=== PATIENT | female | born 1970 | race Hispanic/Latino ===

== ENCOUNTER 2018-08-23 04:59 | Observation (INO) | payer OTHER ==
[2018-08-23] VITALS (21 sets, daily range): BP systolic 108–137; BP diastolic 59–78
[~2018-08-23] VITALS: Ht 162.6 cm; Wt 78.7 kg
[2018-08-23] MEDS ORDERED: ONDANSETRON HCL 4 MG/2 ML VIAL ONE ×2 (05:24→10:48)
[2018-08-23] MEDS ORDERED: SODIUM CHLORIDE 0.9% 1000ML 1,000 ML IV ONE ×2 (05:24→08:31)
[2018-08-23] MEDS ORDERED: KETOROLAC TROMETHAMINE 30MG/ML ONE (05:25)
[2018-08-23 05:30] LABS: APPEARANCE,URINE Clear (CLEAR); BILIRUBIN,URINE Negative (NEGATIVE); COLOR,URINE Yellow (YELLOW); GLUCOSE, URINE (UA) Negative (NEGATIVE); KETONES,URINE Negative (NEGATIVE); LEUKOCYTE ESTERASE ,URINE Moderate (NEGATIVE); NITRATE,URINE Negative (NEGATIVE); OCCULT BLOOD,URINE Large (NEGATIVE); PROTEIN,URINE Negative (NEGATIVE); UROBILINOGEN,URINE 0.2 mg/dL (0.2-1.0)
[2018-08-23 05:30] LABS: BASOPHILS % (AUTO) 0.7 % (0.0-5.0); EOSINOPHILS % (AUTO) 2.2 % (0.0-8.0); HEMATOCRIT 40.3 % (36-48); LYMPHOCYTES % (AUTO) 29.3 % (21.0-51.0); MEAN CORPUSCULAR HEMOGLOBIN 30.7 pg (27.0-33.0); MEAN CORPUSCULAR HGB CONC 33.4 g/dL (32.0-36.0); MEAN CORPUSCULAR VOLUME 91.9 fL (79-99); MONOCYTES % (AUTO) 9.8 % (3.0-13.0); PLATELET COUNT (AUTO) 162 K/uL (130-400); RED BLOOD CELL COUNT(AUTO) 4.39 MIL/uL (4.00-5.50); RED CELL DISTRIBUTION WIDTH 12.5 % (11.0-15.5); WHITE BLOOD COUNT (AUTO) 6.5 K/uL (4.8-10.8)
[2018-08-23 05:39] LABS: AMPHET/METH SCREEN,URINE NEGATIVE (NEGATIVE); BARBITURATE SCREEN, URINE NEGATIVE (NEGATIVE); BENZODIAZEPINES SCREEN,URINE NEGATIVE (NEGATIVE); CANNABINOID SCREEN,URINE NEGATIVE (NEGATIVE); COCAINE SCREEN,URINE NEGATIVE (NEGATIVE); OPIATE SCREEN,URINE NEGATIVE (NEGATIVE); PHENCYCLIDINE SCREEN,URINE NEGATIVE (NEGATIVE)
[2018-08-23 05:39] LABS: CREATININE 0.8 mg/dL (0.5-1.5)
[2018-08-23 05:43] LABS: ALBUMIN 3.6 g/dL (3.5-5.0); BILIRUBIN,DIRECT 0.1 mg/dL (0.0-0.3); BILIRUBIN,TOTAL 0.6 mg/dL (0.2-1.0); TOTAL PROTEIN, SERUM 7.5 g/dL (6.0-8.3)
[2018-08-23 05:47] LABS: BACTERIA,URINE Few /HPF (None Seen); SQUAMOUS EPITHELIAL CELL,UR 0-2 /HPF (0-2); WBC,URINE 0-1 /HPF (0-1)
[2018-08-23] MEDS ORDERED: MORPHINE SULFATE 2 MG/ML 1ML SYG IV PRN ×3 (07:30→11:00)
[2018-08-23 07:49] LABS: INR 0.93 (0.85-1.15); PARTIAL THROMBOPLASTIN TIME 27.4 SEC (26.3-35.5); PROTHROMBIN TIME 9.8 SEC (9.6-11.6)
[2018-08-23] MEDS ORDERED: FAMOTIDINE/PF 20 MG/2 ML VIAL IV ONE (08:32)
[2018-08-23] MEDS: FAMOTIDINE/PF 20 MG/2 ML VIAL IV SCH ×2 (09:00→21:38)
[2018-08-23] MEDS ORDERED: MORPHINE SULFATE 2 MG/ML 1ML SYG ONE (10:37)
[2018-08-23] MEDS ORDERED: PHARMACY COMMUNICATION MISC SCH (10:45)
[2018-08-23] MEDS ORDERED: ONDANSETRON HCL MDV 20ML 2 MG/ML VIAL IVP PRN (11:00)
[2018-08-23] MEDS: CEFTRIAXONE SODIUM 1 GM IVP SCH ×2 (11:15→15:35)
[2018-08-23] MEDS ORDERED: HYDROMORPHONE 1 MG/1 ML AMP ONE (13:26)
[2018-08-23] MEDS ORDERED: LACTATED RINGERS 1000ML 1,000 ML IV ONE (13:32)
[2018-08-23] MEDS ORDERED: MEPERIDINE-PF 25 MG/ML SYG ONE (13:35)
[2018-08-23] MEDS ORDERED: HYDROMORPHONE 1 MG/1 ML AMP IVP ONE (14:30)
[2018-08-23] MEDS ORDERED: IOHEXOL-350 50ML VIAL IV ONE (14:42)
[2018-08-23] MEDS ORDERED: PROPOFOL 10 MG/ML 20ML VIAL IV ONE (15:15)
[2018-08-23] MEDS ORDERED: MIDAZOLAM HCL 1 MG/ML 2ML VIAL ONE (15:15)
[2018-08-23] MEDS ORDERED: FENTANYL CITRATE PF 50 MCG/1 ML 2ML VIAL ONE (15:16)
[2018-08-23] MEDS ORDERED: OPIUM/BELLADONNA ALKALOIDS 1 EACH SUPP.RECT RC ONE (16:50)
[2018-08-23] MEDS: SODIUM CHLORIDE 0.9% 1000ML 1,000 ML IV SCH ×2 (17:22→21:37)
[2018-08-23 19:07] LABS: CREATINE KINASE, TOTAL 41 U/L (21-232); MYOGLOBIN 22 ng/mL (10-92); TROPONIN I < 0.04 ng/mL (0.00-0.06)
[2018-08-24] VITALS: BP 107/66
[2018-08-24 04:00] VITALS: BP 105/69
[2018-08-24 05:22] LABS: HEMATOCRIT 33.7 % (36-48); MEAN CORPUSCULAR HEMOGLOBIN 31.7 pg (27.0-33.0); MEAN CORPUSCULAR HGB CONC 34.4 g/dL (32.0-36.0); PLATELET COUNT (AUTO) 159 K/uL (130-400); RED BLOOD CELL COUNT(AUTO) 3.66 MIL/uL (4.00-5.50); RED CELL DISTRIBUTION WIDTH 12.8 % (11.0-15.5); WHITE BLOOD COUNT (AUTO) 6.9 K/uL (4.8-10.8)
[2018-08-24 05:35] LABS: CREATININE 0.9 mg/dL (0.5-1.5); POTASSIUM 3.3 mmol/L (3.5-5.1)
[2018-08-24] MEDS ORDERED: KETOROLAC TROMETHAMINE 15MG/ML IV SCH (08:15)
[2018-08-24 08:28] VITALS: BP 105/59
[2018-08-24] MEDS: FAMOTIDINE/PF 20 MG/2 ML VIAL IV SCH (08:31)
[2018-08-24] MEDS ORDERED: PHENAZOPYRIDINE HCL 200 MG TABLET PO SCH (09:00)
[2018-08-24] MEDS: CEFTRIAXONE SODIUM 1 GM IVP SCH (11:15)
[2018-08-24 12:09] VITALS: BP 101/66
== END 2018-08-24 13:30 | disposition home or self-care (01) ==
LOC: EDH 04:59 → EDHIP 07:22 → 3AH 09:25
PROVIDERS: ADMIT Hospitalist; ATTEND Hospitalist
DX: N13.2 Hydronephrosis with renal and ureteral calculous obstruction (principal); Z88.5 Allergy status to narcotic agent; Z87.442 Personal history of urinary calculi; Z79.899 Other long term (current) drug therapy; Z90.710 Acquired absence of both cervix and uterus; Z79.01 Long term (current) use of anticoagulants
CPT/HCPCS: 36415 ×2; 52356; 71045; 74176; 74420; 80048 ×2; 80076; 80305; 81001; 82550; 83690; 83874; 84484; 84702; 85025; 85027; 85610; 85730; 87088; 96374; 96375 ×2; 96376; 99285; A4218; A4344; A4358; C1758 ×2; C1769; C2617; G0378 ×30; J0696; J1885 ×2; J2175; J2250; J2405 ×2; J2704; J3010; J3490 ×3; J7030 ×3; J7120; J1170; Q9967

== ENCOUNTER → 2019-03-05 | Outpatient (CLI) | payer OTHER | END | disposition home or self-care (01) | LOC: RAH 13:05 | PROVIDERS: ATTEND Urology Pediatric Urology | DX: N20.0 Calculus of kidney (principal); K42.9 Umbilical hernia without obstruction or gangrene | CPT/HCPCS: 74176 ==

== ENCOUNTER → 2019-04-02 | Outpatient (CLI) | payer OTHER | END | disposition home or self-care (01) | LOC: RAH 14:17 | PROVIDERS: ATTEND Urology Pediatric Urology | DX: N20.0 Calculus of kidney (principal) | CPT/HCPCS: 78700; A9562 ==

== ENCOUNTER 2019-10-25 13:15 | Emergency (ER) | payer OTHER ==
[2019-10-25 13:52] LABS: BASOPHILS % (AUTO) 0.2 % (0.0-5.0); EOSINOPHILS % (AUTO) 0.9 % (0.0-8.0); HEMATOCRIT 39.2 % (36-48); LYMPHOCYTES % (AUTO) 11.7 % (21.0-51.0); MEAN CORPUSCULAR HEMOGLOBIN 29.8 pg (27.0-33.0); MEAN CORPUSCULAR HGB CONC 32.7 g/dL (32.0-36.0); MEAN CORPUSCULAR VOLUME 91.2 fL (79-99); MONOCYTES % (AUTO) 7.6 % (3.0-13.0); NEUTROPHILS % (AUTO) 79.3 % (40.0-77.0); PLATELET COUNT (AUTO) 187 K/uL (130-400); RED CELL DISTRIBUTION WIDTH 12.6 % (11.0-15.5); WHITE BLOOD COUNT (AUTO) 9.1 K/uL (4.8-10.8)
[2019-10-25 14:02] LABS: CREATININE 1.1 mg/dL (0.5-1.5); POTASSIUM 3.3 mmol/L (3.5-5.1)
[2019-10-25 14:06] LABS: APPEARANCE,URINE Clear (CLEAR); BILIRUBIN,URINE Negative (NEGATIVE); COLOR,URINE Yellow (YELLOW); GLUCOSE, URINE (UA) Negative (NEGATIVE); KETONES,URINE Negative (NEGATIVE); LEUKOCYTE ESTERASE ,URINE Moderate (NEGATIVE); NITRATE,URINE Negative (NEGATIVE); OCCULT BLOOD,URINE Large (NEGATIVE); PH,URINE 6.5 (5.0-8.0); PROTEIN,URINE Trace mg/dL (NEGATIVE); UROBILINOGEN,URINE 0.2 mg/dL (0.2-1.0)
[2019-10-25 14:07] LABS: ALBUMIN 3.6 g/dL (3.5-5.0); BILIRUBIN,TOTAL 0.4 mg/dL (0.2-1.0); TOTAL PROTEIN, SERUM 7.4 g/dL (6.0-8.3)
[2019-10-25 14:27] LABS: HCG,QUAL RESULT NEGATIVE (NEGATIVE)
[2019-10-25 14:31] LABS: BACTERIA,URINE Rare /HPF (None Seen); RBC,URINE 26-50 /HPF (0-1); SQUAMOUS EPITHELIAL CELL,UR Few /HPF (0-2)
[2019-10-25] MEDS ORDERED: KETOROLAC TROMETHAMINE 60 MG/2 ML VIAL ONE (14:40)
[2019-10-25] MEDS ORDERED: POTASSIUM CHLORIDE 20 MEQ ERTAB PO ONE (17:11)
[2019-10-25] MEDS ORDERED: SODIUM CHLORIDE 0.9% 1000ML 1,000 ML IV ONE (17:12)
== END 2019-10-25 19:25 | disposition home or self-care (01) ==
LOC: EDH 13:15
DX: N20.2 Calculus of kidney with calculus of ureter (principal); N83.202 Unspecified ovarian cyst, left side; Z88.6 Allergy status to analgesic agent; Z72.0 Tobacco use
CPT/HCPCS: 36415; 74176; 76770; 80053; 81001; 81025; 85025; 87088; 96372; 99285; J1885; J7030

== ENCOUNTER 2020-01-27 05:05 | Emergency (ER) | payer OTHER ==
[2020-01-27] MEDS ORDERED: KETOROLAC TROMETHAMINE 30MG/ML ONE (05:30)
[2020-01-27] MEDS ORDERED: METOCLOPRAMIDE 10 MG/2 ML VIAL ONE (05:30)
[2020-01-27] MEDS ORDERED: ONDANSETRON HCL 4 MG/2 ML VIAL ONE (05:30)
[2020-01-27] MEDS ORDERED: SODIUM CHLORIDE 0.9% 1000ML 2,000 ML IV ONE (05:31)
[2020-01-27 05:33] LABS: APPEARANCE,URINE Cloudy (CLEAR); BILIRUBIN,URINE Negative (NEGATIVE); COLOR,URINE Yellow (YELLOW); GLUCOSE, URINE (UA) Negative (NEGATIVE); KETONES,URINE Negative (NEGATIVE); LEUKOCYTE ESTERASE ,URINE Trace (NEGATIVE); NITRATE,URINE Negative (NEGATIVE); OCCULT BLOOD,URINE Nonhemolyzed Trace (NEGATIVE); PH,URINE 5.5 (5.0-8.0); PROTEIN,URINE Negative (NEGATIVE); UROBILINOGEN,URINE 0.2 mg/dL (0.2-1.0)
[2020-01-27 05:34] LABS: BASOPHILS % (AUTO) 0.5 % (0.0-5.0); EOSINOPHILS % (AUTO) 2.6 % (0.0-8.0); HEMATOCRIT 36.8 % (36-48); LYMPHOCYTES % (AUTO) 13.8 % (21.0-51.0); MEAN CORPUSCULAR HEMOGLOBIN 29.1 pg (27.0-33.0); MEAN CORPUSCULAR HGB CONC 32.3 g/dL (32.0-36.0); MONOCYTES % (AUTO) 6.8 % (3.0-13.0); PLATELET COUNT (AUTO) 220 K/uL (130-400); RED BLOOD CELL COUNT(AUTO) 4.09 MIL/uL (4.00-5.50); RED CELL DISTRIBUTION WIDTH 14.5 % (11.0-15.5); WHITE BLOOD COUNT (AUTO) 7.8 K/uL (4.8-10.8)
[2020-01-27 05:47] LABS: BACTERIA,URINE Few /HPF (None Seen); RBC,URINE 0-1 /HPF (0-1); SQUAMOUS EPITHELIAL CELL,UR Few /HPF (0-2); WBC,URINE 0-1 /HPF (0-1)
[2020-01-27 05:48] LABS: CREATININE 1.5 mg/dL (0.5-1.5); POTASSIUM 3.3 mmol/L (3.5-5.1)
[2020-01-27 05:52] LABS: INR 0.92 (0.85-1.15); PARTIAL THROMBOPLASTIN TIME 25.9 SEC (26.3-35.5)
[2020-01-27 05:55] LABS: ALBUMIN 3.8 g/dL (3.5-5.0); BILIRUBIN,TOTAL 0.4 mg/dL (0.2-1.0); TOTAL PROTEIN, SERUM 8.2 g/dL (6.0-8.3)
[2020-01-27] MEDS ORDERED: TAMSULOSIN HCL 0.4 MG CAP.ER.24H ONE (07:07)
== END 2020-01-27 07:13 | disposition home or self-care (01) ==
LOC: EDH 05:05
DX: N23 Unspecified renal colic (principal); Z90.49 Acquired absence of other specified parts of digestive tract; Z90.710 Acquired absence of both cervix and uterus
CPT/HCPCS: 36415; 76770; 80053; 81001; 82550; 83605; 83690; 85025; 85610; 85730; 87040 ×2; 87088; 96374; 96375; 99284; J1885; J2405; J2765; J7030

== ENCOUNTER 2020-03-12 23:14 | Inpatient (IN) | payer OTHER ==
[2020-03-12 23:37] LABS: APPEARANCE,URINE Turbid (CLEAR); BILIRUBIN,URINE Negative (NEGATIVE); COLOR,URINE Yellow (YELLOW); GLUCOSE, URINE (UA) Negative (NEGATIVE); KETONES,URINE Negative (NEGATIVE); LEUKOCYTE ESTERASE ,URINE Large (NEGATIVE); NITRATE,URINE Negative (NEGATIVE); OCCULT BLOOD,URINE Large (NEGATIVE); PH,URINE 6.5 (5.0-8.0); PROTEIN,URINE 300 mg/dL (NEGATIVE); UROBILINOGEN,URINE 0.2 mg/dL (0.2-1.0)
[2020-03-12 23:40] LABS: HCG,QUAL RESULT NEGATIVE (NEGATIVE)
[2020-03-12 23:42] LABS: BASOPHILS % (AUTO) 0.2 % (0.0-5.0); EOSINOPHILS % (AUTO) 1.8 % (0.0-8.0); HEMATOCRIT 34.3 % (36-48); LYMPHOCYTES % (AUTO) 2.7 % (21.0-51.0); MEAN CORPUSCULAR HEMOGLOBIN 29.1 pg (27.0-33.0); MEAN CORPUSCULAR HGB CONC 33.5 g/dL (32.0-36.0); MEAN CORPUSCULAR VOLUME 86.8 fL (79-99); MONOCYTES % (AUTO) 3.5 % (3.0-13.0); NEUTROPHILS % (AUTO) 91.6 % (40.0-77.0); PLATELET COUNT (AUTO) 165 K/uL (130-400); RED BLOOD CELL COUNT(AUTO) 3.95 MIL/uL (4.00-5.50); WHITE BLOOD COUNT (AUTO) 12.6 K/uL (4.8-10.8)
[2020-03-12 23:50] LABS: BACTERIA,URINE Many /HPF (None Seen); WBC,URINE TNTC /HPF (0-1)
[2020-03-12 23:54] LABS: ALBUMIN 3.8 g/dL (3.5-5.0); BILIRUBIN,TOTAL 0.7 mg/dL (0.2-1.0); CREATININE 1.7 mg/dL (0.5-1.5); TOTAL PROTEIN, SERUM 8.1 g/dL (6.0-8.3)
[2020-03-12] MEDS ORDERED: ONDANSETRON HCL 4 MG/2 ML VIAL ONE (23:54)
[2020-03-12] MEDS ORDERED: MORPHINE SULFATE 4 MG/1ML SYG ONE (23:54)
[2020-03-12] MEDS ORDERED: KETOROLAC TROMETHAMINE 30MG/ML ONE (23:54)
[2020-03-13 00:04] LABS: POTASSIUM 2.8 mmol/L (3.5-5.1)
[2020-03-13] MEDS ORDERED: POTASSIUM BICARB/CIT AC 25 MEQ TABLET.EFF ONE (00:05)
[2020-03-13] MEDS ORDERED: CEFTRIAXONE SODIUM 1 GM ONE (00:26)
[2020-03-13] MEDS ORDERED: LIDOCAINE HCL-MPF 1% 2ML VIAL IV PRN (01:30)
[2020-03-13] MEDS ORDERED: ACETAMINOPHEN 325 MG TAB PO PRN ×2 (01:30)
[2020-03-13] MEDS ORDERED: KETOROLAC TROMETHAMINE 15MG/ML IV PRN (01:30)
[2020-03-13] MEDS ORDERED: POTASSIUM CHLORIDE 20MEQ/100ML 100 ML IV PRN (01:30)
[2020-03-13] MEDS ORDERED: POTASSIUM CHLORIDE 10% ELIXIR 20 MEQ/15 ML UDCUP PO PRN (01:30)
[2020-03-13] MEDS ORDERED: MAGNESIUM 2GM PREMIX 50ML 50 ML IV PRN (01:30)
[2020-03-13] MEDS ORDERED: POTASSIUM CHLORIDE 20 MEQ ERTAB PO PRN (01:30)
[2020-03-13] MEDS ORDERED: ONDANSETRON HCL 4 MG/2 ML VIAL IV PRN (01:30)
[2020-03-13] MEDS ORDERED: CEFTRIAXONE SODIUM 1 GM IVP SCH (01:30)
[2020-03-13] MEDS ORDERED: FAMOTIDINE/PF 20 MG/2 ML VIAL IV SCH (09:00)
== END 2020-03-13 01:56 | disposition left against medical advice (07) | DRG 690 ==
LOC: EDH 23:14 → EDHIP 03-13 01:19
PROVIDERS: ADMIT Family Medicine; ATTEND Family Medicine
DX: N13.6 Pyonephrosis (principal); N20.2 Calculus of kidney with calculus of ureter; E87.6 Hypokalemia; Z87.442 Personal history of urinary calculi; Z88.5 Allergy status to narcotic agent; Z83.3 Family history of diabetes mellitus
CPT/HCPCS: 36415; 74176; 80053; 81001; 81025; 83735; 85025; 87077; 87088; 87186; G0378; J0696; J1885; J2270; J2405

== ENCOUNTER 2020-03-13 12:50 | Inpatient (IN) | payer OTHER ==
[~2020-03-13] VITALS: Ht 162.6 cm; Wt 81.7 kg
[2020-03-13] MEDS ORDERED: KETOROLAC TROMETHAMINE 30MG/ML ONE (13:38)
[2020-03-13] MEDS ORDERED: SODIUM CHLORIDE 0.9% 1000ML 1,000 ML IV ONE (13:38)
[2020-03-13] MEDS ORDERED: ACETAMINOPHEN EXTRA STRENGTH 500 MG TABLET ONE (14:27)
[2020-03-13 15:07] LABS: BASOPHILS % (AUTO) 0.2 % (0.0-5.0); EOSINOPHILS % (AUTO) 1.8 % (0.0-8.0); LYMPHOCYTES % (AUTO) 2.8 % (21.0-51.0); MEAN CORPUSCULAR HEMOGLOBIN 29.5 pg (27.0-33.0); MEAN CORPUSCULAR HGB CONC 33.5 g/dL (32.0-36.0); MEAN CORPUSCULAR VOLUME 87.9 fL (79-99); MONOCYTES % (AUTO) 3.5 % (3.0-13.0); NEUTROPHILS % (AUTO) 91.4 % (40.0-77.0); PLATELET COUNT (AUTO) 171 K/uL (130-400); RED BLOOD CELL COUNT(AUTO) 3.87 MIL/uL (4.00-5.50); RED CELL DISTRIBUTION WIDTH 13.3 % (11.0-15.5); WHITE BLOOD COUNT (AUTO) 12.3 K/uL (4.8-10.8)
[2020-03-13 15:16] LABS: CREATININE 2.2 mg/dL (0.5-1.5); POTASSIUM 3.3 mmol/L (3.5-5.1)
[2020-03-13 15:21] LABS: ALBUMIN 3.2 g/dL (3.5-5.0); TOTAL PROTEIN, SERUM 7.4 g/dL (6.0-8.3)
[2020-03-13] MEDS: SODIUM CHLORIDE 0.9% 1000ML 1,000 ML IV SCH (15:23)
[2020-03-13] MEDS ORDERED: ONDANSETRON HCL 4 MG/2 ML VIAL IV PRN (15:30)
[2020-03-13] MEDS ORDERED: CEFTRIAXONE SODIUM 1 GM IV SCH (15:30)
[2020-03-13] MEDS ORDERED: CEFTRIAXONE SODIUM 1 GM ONE (15:31)
[2020-03-13] MEDS ORDERED: MEPERIDINE HCL/PF 25 MG/0.5 ML AMPUL IVP PRN (15:45)
--- NOTE | 2020-03-13 19:28 | NUR ---
ADMISSION NOTE: Admitted to floor per stretcher from ER. Fully awake and responsive. AOx4. Ambulatory. Placed in bed comfortably. Has an IVF of NS1L @ 125 ml/hr via dial flow to RAC # 20 gauge - patent and intact. VS checked and recorded. Assessment done. ( See CPOE flow sheet for full assessment). Oriented to room and use of call light. Policies and procedures explained. Agreed and verbalized understanding. Telemetry attached at bedside, NSR. Mild headache reported that aggravates whenever she moves at this time. No apparent distress noted. Per pt report she has no home medications. Plan of care initiated. Cared for and needs attended. Kept monitored.
[2020-03-13 19:30] VITALS: BP 122/69
[2020-03-13] MEDS ORDERED: ZOSYN 3.375GM+NS 50ML 50 ML IV ONE (19:53)
[2020-03-13] MEDS: ZOSYN 3.375GM+NS 50ML 50 ML IV SCH (20:03)
[2020-03-13] MEDS: ACETAMINOPHEN 325 MG TAB PO PRN (20:05)
[2020-03-13] MEDS ORDERED: MEPERIDINE-PF 50 MG/ML SYG IVP ONE (22:00)
[2020-03-13 23:55] VITALS: BP 108/61
[2020-03-14] MEDS: ACETAMINOPHEN 325 MG TAB PO PRN ×4 (01:14→20:35)
[2020-03-14] MEDS: SODIUM CHLORIDE 0.9% 1000ML 1,000 ML IV SCH ×3 (01:15→20:35)
[2020-03-14] MEDS: MEPERIDINE-PF 25 MG/ML SYG IVP PRN (01:15)
[2020-03-14 04:00] VITALS: BP 105/60
[2020-03-14 04:38] LABS: BASOPHILS % (AUTO) 0.2 % (0.0-5.0); EOSINOPHILS % (AUTO) 0.2 % (0.0-8.0); LYMPHOCYTES % (AUTO) 2.6 % (21.0-51.0); MEAN CORPUSCULAR HEMOGLOBIN 29.1 pg (27.0-33.0); MEAN CORPUSCULAR HGB CONC 32.5 g/dL (32.0-36.0); MEAN CORPUSCULAR VOLUME 89.6 fL (79-99); MONOCYTES % (AUTO) 2.9 % (3.0-13.0); NEUTROPHILS % (AUTO) 93.5 % (40.0-77.0); PLATELET COUNT (AUTO) 115 K/uL (130-400); RED BLOOD CELL COUNT(AUTO) 3.57 MIL/uL (4.00-5.50); RED CELL DISTRIBUTION WIDTH 13.2 % (11.0-15.5); WHITE BLOOD COUNT (AUTO) 8.5 K/uL (4.8-10.8)
[2020-03-14 04:59] LABS: ALBUMIN 2.5 g/dL (3.5-5.0); BILIRUBIN,TOTAL 0.9 mg/dL (0.2-1.0); CREATININE 2.1 mg/dL (0.5-1.5); POTASSIUM 3.1 mmol/L (3.5-5.1); TOTAL PROTEIN, SERUM 6.4 g/dL (6.0-8.3)
--- NOTE | 2020-03-14 05:45 | NUR ---
K: 3.1 On- call hospitalist was called for the potassium result with an order to give Potassium 20mEQ tab po x 1 dose only. Reported to AM shift.
[2020-03-14] MEDS ORDERED: POTASSIUM CHLORIDE 20 MEQ ERTAB PO SCH (06:00)
--- NOTE | 2020-03-14 07:10 | NUR ---
Lab staff called to report that urine culture result is positive for ESBL and Ecoli. Am shift RN made aware. Pt. placed on contact precaution.
[2020-03-14 08:00] VITALS: BP 139/92
[2020-03-14] MEDS: ZOSYN 3.375GM+NS 50ML 50 ML IV SCH ×2 (08:37→20:34)
[2020-03-14] MEDS: FAMOTIDINE/PF 20 MG/2 ML VIAL IV SCH (09:35)
--- NOTE | 2020-03-14 11:06 | NUR ---
cm note met with patient and states resides at home with boyfriend, independent with adls and self care. no dme. no services, pt drives. dc plan is back to same home setting [place]. no dc needs. Addendum: 03/14/20 at 1109 by CHRIS SAUCEDA CM Amended: Links added.
[2020-03-14 11:13] VITALS: BP 111/65
--- NOTE | 2020-03-14 12:10 | NUR ---
SPOKE WITH DR. ENCARNACION(UROLOGY CONSULT), UPDATED HER WITH RESULTS. NEW ORDERS ACKNOWLEDGED. Pt. IN NO APPARENT DISTRESS, DENIES ANY PAIN AT THIS TIME.
[2020-03-14 15:37] VITALS: BP 120/69
[2020-03-14] MEDS ORDERED: POTASSIUM CHLORIDE 20MEQ/100ML 100 ML IV PRN (17:45)
[2020-03-14] MEDS ORDERED: POTASSIUM CHLORIDE 20 MEQ ERTAB PO PRN (17:45)
--- NOTE | 2020-03-14 18:15 | NUR ---
DR. VANESSA SARKAR POTASSIUM REPLACEMENT PROTOCOL FOR HYPOKALEMIA.
[2020-03-14 19:00] VITALS: BP 100/53
[2020-03-14] MEDS ORDERED: POTASSIUM CHLORIDE 10% ELIXIR 20 MEQ/15 ML UDCUP PO PRN (19:00)
[2020-03-14 23:00] VITALS: BP 128/70
[2020-03-15 03:00] VITALS: BP 128/69
[2020-03-15] MEDS: MEPERIDINE-PF 25 MG/ML SYG IVP PRN (03:45)
[2020-03-15 04:57] LABS: BASOPHILS % (AUTO) 0.2 % (0.0-5.0); EOSINOPHILS % (AUTO) 0.2 % (0.0-8.0); HEMATOCRIT 29.8 % (36-48); LYMPHOCYTES % (AUTO) 4.7 % (21.0-51.0); MEAN CORPUSCULAR HEMOGLOBIN 29.7 pg (27.0-33.0); MEAN CORPUSCULAR HGB CONC 33.2 g/dL (32.0-36.0); MEAN CORPUSCULAR VOLUME 89.5 fL (79-99); MONOCYTES % (AUTO) 4.1 % (3.0-13.0); NEUTROPHILS % (AUTO) 90.3 % (40.0-77.0); PLATELET COUNT (AUTO) 135 K/uL (130-400); RED BLOOD CELL COUNT(AUTO) 3.33 MIL/uL (4.00-5.50); RED CELL DISTRIBUTION WIDTH 13.4 % (11.0-15.5); WHITE BLOOD COUNT (AUTO) 6.6 K/uL (4.8-10.8)
[2020-03-15 05:05] LABS: ALBUMIN 2.4 g/dL (3.5-5.0); BILIRUBIN,TOTAL 0.7 mg/dL (0.2-1.0); CREATININE 1.8 mg/dL (0.5-1.5); TOTAL PROTEIN, SERUM 6.7 g/dL (6.0-8.3)
[2020-03-15 05:15] LABS: POTASSIUM 2.9 mmol/L (3.5-5.1)
[2020-03-15] MEDS: POTASSIUM CHLORIDE 10MEQ/100ML 100 ML IV PRN ×3 (05:40→21:31)
[2020-03-15] MEDS: LIDOCAINE HCL-MPF 1% 2ML VIAL IV PRN ×3 (05:40→21:31)
[2020-03-15 08:12] VITALS: BP 133/75
--- NOTE | 2020-03-15 08:20 | NUR ---
TEMP OF 100.6 WILL MONITOR TEMPS.
[2020-03-15] MEDS: ZOSYN 3.375GM+NS 50ML 50 ML IV SCH (09:42)
[2020-03-15] MEDS: FAMOTIDINE/PF 20 MG/2 ML VIAL IV SCH (09:42)
[2020-03-15] MEDS: TAMSULOSIN HCL 0.4 MG CAP.ER.24H PO SCH (09:42)
[2020-03-15] MEDS: SODIUM CHLORIDE 0.9% 1000ML 1,000 ML IV SCH ×3 (11:30→20:43)
[2020-03-15 11:45] VITALS: BP 124/74
--- NOTE | 2020-03-15 15:33 | NUR ---
SPOKE W/ DR. RODRIGUEZ RE; + B/C AND A RECHECKED K 2.8 STATES I WILL CALL YOU BACK AFTER I AM DONE WITH A CALL.
--- NOTE | 2020-03-15 15:36 | NUR ---
DR. BETHEA AWARE OF CASE STATES ADD TO MY LIST.
[2020-03-15] MEDS: ACETAMINOPHEN 325 MG TAB PO PRN ×2 (15:46→21:39)
[2020-03-15 16:20] VITALS: BP 130/68
--- NOTE | 2020-03-15 17:35 | NUR ---
PT FEELS WARM, TEMP 98.7 WILL CONTINUE TO MONITOR TEMP.
[2020-03-15] MEDS: POTASSIUM CHLORIDE 20 MEQ ERTAB PO PRN ×3 (19:46→23:34)
[2020-03-15 20:00] VITALS: BP 114/76
--- NOTE | 2020-03-15 20:00 | NUR ---
MD DR RODRIGUEZ IN TO SEE PT. NEW ORDERS GIVEN, PLEASE REFER TO CPOE.
[2020-03-15] MEDS ORDERED: COMPOUND IV MISC 1 EACH IVSOLN MISC PRN (20:15)
[2020-03-15] MEDS ORDERED: ASCORBIC ACID 500 MG TAB PO SCH (20:15)
[2020-03-15] MEDS: MEROPENEM 500 MG VIAL IVP SCH (20:38)
--- NOTE | 2020-03-15 20:40 | NUR ---
MEDS SHIFT ASSESSMENT DONE, PLEASE REFER TO CHART. DUE MEDS ADMINISTERED, TOLERATED WELL. KEPT RESTED AND COMFORTABLE. CALL LIGHT WITHIN REACH. WILL MONITOR PT. Addendum: 03/15/20 at 1085 by EVELYN HE RN RN Amended: Links added.
[2020-03-15 23:54] VITALS: BP 124/71
--- NOTE | 2020-03-16 02:34 | NUR ---
MEDS AWAKENED PT FOR DUE MEDS, CONTINUED POTASSIUM COVERAGE. DENIES ANY CONCERNS AT THIS TIME. ENCOURAGED TO GO BACK TO SLEEP. WILL MONITOR PT. CALL LIGHT WITHIN REACH.
[2020-03-16] MEDS: POTASSIUM CHLORIDE 20 MEQ ERTAB PO PRN ×4 (02:43→08:51)
[2020-03-16] MEDS: SODIUM CHLORIDE 0.9% 1000ML 1,000 ML IV SCH ×3 (03:49→20:14)
[2020-03-16] MEDS: MEROPENEM 500 MG VIAL IVP SCH ×3 (03:53→20:14)
[2020-03-16 04:11] VITALS: BP 126/63
--- NOTE | 2020-03-16 04:47 | NUR ---
MEDS AWAKENED PT FOR LAST DOSE OF PO POTASSIUM. NO CONCERNS VERBALIZED AT THIS TIME. NO DISTRESS NOTED. KEPT COMFORTABLE IN BED. FOR MORE CARE.
[2020-03-16 05:17] LABS: HEMATOCRIT 30.9 % (36-48); MEAN CORPUSCULAR HGB CONC 32.4 g/dL (32.0-36.0); MEAN CORPUSCULAR VOLUME 89.6 fL (79-99); RED BLOOD CELL COUNT(AUTO) 3.45 MIL/uL (4.00-5.50); RED CELL DISTRIBUTION WIDTH 13.6 % (11.0-15.5); WHITE BLOOD COUNT (AUTO) 5.6 K/uL (4.8-10.8)
[2020-03-16 05:31] LABS: HEMOGLOBIN A1C 5.4 % (4.0-6.0)
[2020-03-16 05:36] LABS: ALBUMIN 2.2 g/dL (3.5-5.0); BILIRUBIN,TOTAL 0.7 mg/dL (0.2-1.0); CREATININE 1.9 mg/dL (0.5-1.5); MAGNESIUM 1.8 mg/dL (1.80-2.40); PHOSPHORUS 1.6 mg/dL (2.5-4.9); POTASSIUM 3.4 mmol/L (3.5-5.1)
[2020-03-16 06:15] LABS: CRP QUANTITATIVE 317.8 mg/L (0.00-9.0)
[2020-03-16 08:25] VITALS: BP 135/69
[2020-03-16] MEDS: FAMOTIDINE 20MG TAB 20 MG TAB PO SCH ×2 (08:50→20:14)
[2020-03-16] MEDS: TAMSULOSIN HCL 0.4 MG CAP.ER.24H PO SCH (08:50)
[2020-03-16] MEDS: IRON SUCROSE COMPLEX 300 MG in SODIUM CHLORIDE 0.9% 50 ML IV SCH (08:51)
[2020-03-16] MEDS: ASCORBIC ACID 500 MG TAB PO SCH (08:51)
[2020-03-16 12:08] VITALS: BP 132/88
[2020-03-16] MEDS: MEPERIDINE-PF 25 MG/ML SYG IVP PRN (15:51)
[2020-03-16 16:10] VITALS: BP 154/75
[2020-03-16 20:24] VITALS: BP 127/87
[2020-03-17] VITALS (7 sets, daily range): BP systolic 123–137; BP diastolic 72–77
[2020-03-17 04:12] LABS: BASOPHILS % (AUTO) 0.6 % (0.0-5.0); EOSINOPHILS % (AUTO) 2.5 % (0.0-8.0); HEMATOCRIT 29.5 % (36-48); LYMPHOCYTES % (AUTO) 15.9 % (21.0-51.0); MEAN CORPUSCULAR HEMOGLOBIN 28.8 pg (27.0-33.0); MEAN CORPUSCULAR HGB CONC 32.2 g/dL (32.0-36.0); MEAN CORPUSCULAR VOLUME 89.4 fL (79-99); MONOCYTES % (AUTO) 12.7 % (3.0-13.0); NEUTROPHILS % (AUTO) 66.9 % (40.0-77.0); PLATELET COUNT (AUTO) 156 K/uL (130-400); RED CELL DISTRIBUTION WIDTH 13.9 % (11.0-15.5); WHITE BLOOD COUNT (AUTO) 3.5 K/uL (4.8-10.8)
[2020-03-17 04:28] LABS: INR 0.92 (0.85-1.15)
[2020-03-17 04:32] LABS: ALBUMIN 2.3 g/dL (3.5-5.0); BILIRUBIN,TOTAL 0.5 mg/dL (0.2-1.0); CREATININE 1.5 mg/dL (0.5-1.5); TOTAL PROTEIN, SERUM 6.9 g/dL (6.0-8.3)
[2020-03-17] MEDS: MEROPENEM 500 MG VIAL IVP SCH ×3 (05:04→20:10)
[2020-03-17] MEDS: POTASSIUM CHLORIDE 20 MEQ ERTAB PO PRN (05:04)
[2020-03-17] MEDS: SODIUM CHLORIDE 0.9% 1000ML 1,000 ML IV SCH ×3 (06:28→20:10)
[2020-03-17] MEDS: FAMOTIDINE 20MG TAB 20 MG TAB PO SCH ×2 (07:44→20:10)
[2020-03-17] MEDS: ASCORBIC ACID 500 MG TAB PO SCH (07:44)
[2020-03-17] MEDS: TAMSULOSIN HCL 0.4 MG CAP.ER.24H PO SCH (07:44)
[2020-03-17] MEDS: IRON SUCROSE COMPLEX 300 MG in SODIUM CHLORIDE 0.9% 50 ML IV SCH (07:45)
[2020-03-17] MEDS ORDERED: POTASSIUM CHLORIDE 20 MEQ ERTAB PO SCH (09:00)
--- NOTE | 2020-03-17 12:49 | NUR ---
picc line 5 bruneian 2 lumen picc line inserted to left upper arm using sterile technique. pt jim well. no adverse reactions noted. picc line at 40 cm insertion site. 10 cm exposed. sterile dressing applied after completion. both ports flushed without difficulty, good blood return on both ports. Patient denied any pain or numbness to left arm. Report given to Diana Jurado RN. picc line ready to use per [facility]seye confirmation. tip placed at lower 1/3 svc or AT [facility]
[2020-03-17] MEDS: MAGNESIUM OXIDE 400 MG TABLET PO SCH (12:50)
[2020-03-17 15:00] LABS: CREATININE 1.7 mg/dL (0.5-1.5); MAGNESIUM 1.9 mg/dL (1.80-2.40); POTASSIUM 3.4 mmol/L (3.5-5.1)
--- NOTE | 2020-03-17 16:55 | NUR ---
CM NOTE/HH CALLED INSURANCE, OBTAINED [facility] [employer] IN NETWORK. MEET WITH PATIENT IN ROOM, OPTIONS BASED ON INSURANCE NETWORK GIVEN, ONESIMO FILLED FOR [facility] AND [facility] FOR IV ANTIBIOTICS. [facility] FAXED CLINICAL PACKET AND RX FOR IV ANTIBIOTICS, EMAIL SENT TO [facility] WITH [facility], WILL FOLLOW UP. [facility] CLINICAL PACKET FAXED, SPOKE WITH DAVIS AT [facility] TO EXPECT PACKET. WILL FOLLOW UP FOR AUTHORIZATION.
[2020-03-18] MEDS: ACETAMINOPHEN 325 MG TAB PO PRN (00:07)
[2020-03-18] MEDS: SODIUM CHLORIDE 0.9% 1000ML 1,000 ML IV SCH ×3 (03:28→18:39)
[2020-03-18] MEDS: MEROPENEM 500 MG VIAL IVP SCH ×3 (03:33→22:12)
[2020-03-18 03:36] VITALS: BP 148/78
[2020-03-18 04:12] LABS: BASOPHILS % (AUTO) 0.7 % (0.0-5.0); EOSINOPHILS % (AUTO) 2.3 % (0.0-8.0); HEMATOCRIT 30.2 % (36-48); LYMPHOCYTES % (AUTO) 13.9 % (21.0-51.0); MEAN CORPUSCULAR HEMOGLOBIN 28.7 pg (27.0-33.0); MEAN CORPUSCULAR HGB CONC 31.8 g/dL (32.0-36.0); MEAN CORPUSCULAR VOLUME 90.4 fL (79-99); MONOCYTES % (AUTO) 12.1 % (3.0-13.0); NEUTROPHILS % (AUTO) 64.8 % (40.0-77.0); PLATELET COUNT (AUTO) 202 K/uL (130-400); RED BLOOD CELL COUNT(AUTO) 3.34 MIL/uL (4.00-5.50); RED CELL DISTRIBUTION WIDTH 14.4 % (11.0-15.5)
[2020-03-18 04:27] LABS: CREATININE 1.6 mg/dL (0.5-1.5); POTASSIUM 3.4 mmol/L (3.5-5.1)
[2020-03-18 07:59] VITALS: BP 137/72
[2020-03-18] MEDS: FAMOTIDINE 20MG TAB 20 MG TAB PO SCH ×2 (09:51→22:12)
[2020-03-18] MEDS: TAMSULOSIN HCL 0.4 MG CAP.ER.24H PO SCH (09:51)
[2020-03-18] MEDS: MAGNESIUM OXIDE 400 MG TABLET PO SCH (09:51)
[2020-03-18] MEDS: ASCORBIC ACID 500 MG TAB PO SCH (09:52)
[2020-03-18] MEDS: IRON SUCROSE COMPLEX 300 MG in SODIUM CHLORIDE 0.9% 250 ML IV SCH (11:07)
[2020-03-18] MEDS: IRON SUCROSE COMPLEX 300 MG in SODIUM CHLORIDE 0.9% 50 ML IV SCH (11:35)
[2020-03-18 12:00] VITALS: BP 126/75
[2020-03-18 16:00] VITALS: BP 132/73
[2020-03-18 20:35] VITALS: BP 141/83
[2020-03-18 23:38] VITALS: BP 121/69
[2020-03-19 03:31] VITALS: BP 122/67
[2020-03-19] MEDS: SODIUM CHLORIDE 0.9% 1000ML 1,000 ML IV SCH ×2 (04:53→11:59)
[2020-03-19] MEDS: MEROPENEM 500 MG VIAL IVP SCH (04:53)
[2020-03-19 07:38] VITALS: BP 122/74
[2020-03-19] MEDS: IRON SUCROSE COMPLEX 300 MG in SODIUM CHLORIDE 0.9% 50 ML IV SCH (09:00)
[2020-03-19] MEDS: FAMOTIDINE 20MG TAB 20 MG TAB PO SCH (09:10)
[2020-03-19] MEDS: ASCORBIC ACID 500 MG TAB PO SCH (09:10)
[2020-03-19] MEDS: TAMSULOSIN HCL 0.4 MG CAP.ER.24H PO SCH (09:10)
[2020-03-19] MEDS: MAGNESIUM OXIDE 400 MG TABLET PO SCH (09:11)
[2020-03-19] MEDS: IRON SUCROSE COMPLEX 300 MG in SODIUM CHLORIDE 0.9% 250 ML IV SCH (09:53)
--- NOTE | 2020-03-19 11:26 | NUR ---
CM NOTE/[facility] APPROVED MEDICATION PER [facility] AT [place], IV INVANZ APPROVED. CURRENTLY ALSO APPROVED FOR [facility]. PRIMARY NURSE, TIARA AMOS, MADE AWARE. CALL PLACED TO DR. BETHEA FOR RECOMMENDATIONS IF TO START FIRST DOSE NOW OR AT HOME, NURSE TO FOLLOW UP.
[2020-03-19 11:32] VITALS: BP 120/70
[2020-03-19] MEDS ORDERED: PHARMACY COMMUNICATION MISC SCH (12:45)
[2020-03-19] MEDS ORDERED: INVANZ 1GM+NS 50ML IVPB 50 ML IV ONE (14:00)
--- NOTE | 2020-03-19 14:27 | NUR ---
PT GIVEN FIRST DOSE OF INVANZ WITHOUT ANY INCIDENT. CAPPED IV PICC LINE, AND DISCHARGE INSTRUCTIONS GIVEN. SBAR TO [facility] CORY CANNON RN
== END 2020-03-19 15:15 | disposition home health service (06) | DRG 872 ==
LOC: EDH 12:50 → EDHIP 15:23 → 4CH 19:15
PROVIDERS: ADMIT Hospitalist; ATTEND Hospitalist
PROC: 05HY33Z Insertion of Infusion Device into Upper Vein, Percutaneous Approach (ICD-10-PCS; principal; 2020-03-17)
DX: A41.50 Gram-negative sepsis, unspecified (principal); N13.6 Pyonephrosis; Z16.12 Extended spectrum beta lactamase (ESBL) resistance; Z16.24 Resistance to multiple antibiotics; N20.1 Calculus of ureter; N17.9 Acute kidney failure, unspecified; E86.1 Hypovolemia; E66.9 Obesity, unspecified; E87.6 Hypokalemia; I10 Essential (primary) hypertension; N20.0 Calculus of kidney; B96.20 Unspecified Escherichia coli [E. coli] as the cause of diseases classified elsewhere; Z68.30 Body mass index [BMI] 30.0-30.9, adult; Z88.5 Allergy status to narcotic agent; Z90.710 Acquired absence of both cervix and uterus; Z87.440 Personal history of urinary (tract) infections; Z87.442 Personal history of urinary calculi; Z83.3 Family history of diabetes mellitus
CPT/HCPCS: 36415; 76770; 80048; 80053; 83036; 83735; 84100; 84132; 84145; 85025; 85027; 85610; 86140; 87040; 87077; 87088; 87186; 99291; C1894; G0378; J0696; J1335; J1756; J1885; J2175; J2185; J2543; J3490; J7030

== ENCOUNTER → 2020-06-11 | Outpatient (CLI) | payer OTHER | END | disposition home or self-care (01) | LOC: RAH 07:53 | PROVIDERS: ATTEND Urology Pediatric Urology | DX: N20.1 Calculus of ureter (principal); Z96.0 Presence of urogenital implants | CPT/HCPCS: 74018 ==

== ENCOUNTER → 2020-07-14 | Outpatient (CLI) | payer OTHER | END | disposition home or self-care (01) | LOC: RAH 12:55 | PROVIDERS: ATTEND Urology Pediatric Urology | DX: N83.202 Unspecified ovarian cyst, left side (principal); N20.0 Calculus of kidney; N28.1 Cyst of kidney, acquired; K42.9 Umbilical hernia without obstruction or gangrene; N20.1 Calculus of ureter | CPT/HCPCS: 74176 ==

== ENCOUNTER → 2022-05-30 | Outpatient (CLI) | payer OTHER | END | disposition home or self-care (01) | LOC: RAH 15:05 | PROVIDERS: ATTEND Urology Pediatric Urology | DX: N20.0 Calculus of kidney (principal) | CPT/HCPCS: 74176 ==

== ENCOUNTER 2024-08-28 19:33 | Emergency (ER) | payer OTHER ==
[~2024-08-28] VITALS: Ht 162.6 cm; Wt 87.1 kg
[2024-08-28 19:35] VITALS: BP 144/77; PULSE 79; RESP 18; TEMP 97.2
[2024-08-28] MEDS: PANTOPrazole 40 MG/VIAL IVP ONE (19:53)
[2024-08-28 20:04] LABS: BASOPHILS # (AUTO) 0.03 K/uL (0.00-0.20); BASOPHILS % (AUTO) 0.6 % (0.0-5.0); EOSINOPHILS # (AUTO) 0.08 K/uL (0.00-0.70); EOSINOPHILS % (AUTO) 1.5 % (0.0-8.0); HEMATOCRIT 43.3 % (36-48); IMMATURE GRANULOCYTE ABSOLUTE 0.02 K/uL (0-1); LYMPHOCYTES # (AUTO) 1.3 K/uL (1.0-4.8); LYMPHOCYTES % (AUTO) 24.5 % (21.0-51.0); MEAN CORPUSCULAR HGB CONC 32.6 g/dL (32.0-36.0); MEAN CORPUSCULAR VOLUME 92.1 fL (79-99); MONOCYTES # (AUTO) 0.5 K/uL (0.1-1.0); MONOCYTES % (AUTO) 9.3 % (3.0-13.0); NEUTROPHILS # (AUTO) 3.4 K/uL (1.8-7.7); NEUTROPHILS % (AUTO) 63.7 % (40.0-77.0); PLATELET COUNT (AUTO) 176 K/uL (130-400); RED CELL DISTRIBUTION WIDTH 11.9 % (11.0-15.5); WHITE BLOOD COUNT (AUTO) 5.4 K/uL (4.8-10.8)
[2024-08-28 20:17] LABS: INR 1.01 (0.85-1.15); PROTHROMBIN TIME 10.9 SEC (9.6-11.6)
[2024-08-28 20:18] LABS: CREATININE 1.1 mg/dL (0.5-1.0); POTASSIUM 3.2 mmol/L (3.5-5.1)
[2024-08-28 20:19] LABS: PARTIAL THROMBOPLASTIN TIME 27.9 SEC (26.3-35.5)
[2024-08-28 20:27] LABS: ALBUMIN 4.3 g/dL (3.5-5.0); BILIRUBIN,TOTAL 0.9 mg/dL (0.2-1.0); MAGNESIUM 2.1 mg/dL (1.80-2.40); TOTAL PROTEIN, SERUM 7.9 g/dL (6.0-8.3)
[2024-08-28 20:29] LABS: B-TYPE NATRIURETIC PEPTIDE < 5 pg/mL (0-100)
[2024-08-28] MEDS: LIDOCAINE HCL 2% VISCOUS 15 ML UDCUP PO ONE (21:02)
[2024-08-28] MEDS: MAG/ALUM/SIMETH 30 ML UDCUP PO ONE (21:02)
[2024-08-28] MEDS ORDERED: PANT40TA55 PO (21:53)
== END 2024-08-28 22:08 | disposition home or self-care (01) ==
LOC: EDH 19:33
DX: K21.9 Gastro-esophageal reflux disease without esophagitis (principal); Z87.442 Personal history of urinary calculi; Z88.5 Allergy status to narcotic agent; Z90.710 Acquired absence of both cervix and uterus; Z98.890 Other specified postprocedural states
CPT/HCPCS: 99285; 96374; 71045; 82550; 83735; 84484; 80053; 83880; 85025; 85610; 85730; 36415; 93005; J2470

== ENCOUNTER → 2024-09-29 | Outpatient (CLI) | payer OTHER ==
[~2024-09-29] MED LIST: PANT40TA55 PO
--- NOTE | 2024-09-29 11:01 | HMCIMG ---
SHOULDER COMP 2+VWS RT HISTORY: Right shoulder pain COMPARISON: None TECHNIQUE: 2 images of right shoulder were obtained. FINDINGS: There is no acute displaced fracture or dislocation. Degenerative changes are seen. IMPRESSION: 1. Findings as described above.
== END | disposition home or self-care (01) ==
LOC: RAH 10:12
PROVIDERS: ATTEND Family Medicine
DX: M19.011 Primary osteoarthritis, right shoulder (principal); M25.511 Pain in right shoulder
CPT/HCPCS: 73030